=== PATIENT | male | born 1955 | race Caucasian/White ===

== ENCOUNTER 2017-03-21 18:44 | Emergency (ER) | payer BC ==
--- NOTE | 2017-03-21 19:36 | RADIOLOGY REPORT ---
HISTORY: Right ankle injury, pain COMPARISON: None. FINDINGS: Three views of the ankle obtained. Oblique mildly displaced distal fibular fracture. The distal tibia is intact. Ankle mortise intact. L ateral soft tissue swelling. No foreign body. IMPRESSION: Oblique mildly displaced distal fibular fracture. Final Electronic Signature: This report was electronically signed by Reji Lincoln MD on 03/21/2017 7:33 PM. do /
--- NOTE | 2017-03-21 20:21 | ER NURSING DOCUMENTATION ---
Nurse's Notes [facility] Name:Reji Iyer Age:61 yrs Sex:Male :1955 Arrival Date:03/21/2017 Time:18:44 Bed1 Private MD: Diagnosis:Distal Fibula Fracture Presentation: 03/21 19:01 Presenting complaint: Patient states: right ankle pain s/p twisting while hiking. lb positive swelling. Transition of care: patient was not received from another setting of care. Notified ED Physician of Dr. García notified. 19:01 Acuity: GEORGES 4 lb 19:01 Method Of Arrival: Walk In lb 19:05 Mechanism of Injury: Fall. lb Triage Assessment: 19:04 General: Appears in no apparent distress, Behavior is appropriate for age. Pain: lb Complains of pain in right ankle Pain does not radiate. Pain currently is 7 out of 10 on a pain scale. Musculoskeletal: No deficits noted. 19:05 Musculoskeletal: Swelling. lb Historical: - Allergies: Demerol; SULFA (SULFONAMIDES); Hydrocodone-Acetaminophen; Latex; - Home Meds: 1. atenolol 25 mg oral tab 1 tab 2 times per day 2. Plavix 75 mg oral tab 1 tab once daily - PMHx: CAD; - PSHx: SHOULDER SURGERY; PACEMAKER; stents; - Tetanus: > 10 years. - Ebola Screening: : Patient denies exposure to infectious person. Patient denies travel to an Ebola-affected area in the 21 days before illness onset. . - Immunization history: Flu Vaccine None. - Social history: Smoking status: Patient states was never smoker of tobacco. Patient uses alcohol only on a social basis. Screenin:06 Infectious Disease Risk None. Abuse screen: Denies threats or abuse. Denies injuries lb from another. Nutritional screening: No deficits noted. Assessment: 19:06 See Triage Assessment done by same RN. lb Vital Signs: 19:05 BP 194 / 92; Pulse 62; Resp 16; Temp 98(O); Pulse Ox 93% on R/A; Weight 81.65 kg; lb Height 5 ft. 7 in. (170.18 cm); Pain 7/10; 20:19 BP 183 / 70; Pulse 60; Resp 14; Pain 5/10; lb 19:05 Body Mass Index 28.19 (81.65 kg, 170.18 cm) lb ED Course: 18:45 Patient arrived in ED. ma1 18:45 Meño García MD is Attending Physician. mo 19:01 Kiara Arriaga is Primary Nurse. lb 19:02 Triage completed. lb 19:05 Affected limb iced. lb 19:06 Valuables Remains with patient. lb 19:20 Port Xray Completed. hz 19:27 ANKLE; [place] [address] In Process Unspecified. EDMS 19:27 [place] [id number] In Process Unspecified. EDMS 19:39 Port Xray Completed. dnn 19:39 ANKLE; [place] [id number] Sent. dnn 19:39 [place] [address] [id number] Sent. dnn 20:05 Emmanuel Lassiter DO, Reji Meléndez MD is Referral Physician. mo 20:18 Crutch training done. Walking boot applied. lb Administered Medications: No medications were administered Outcome: 20:06 Discharge ordered by MD. mo 20:19 Discharged to home ambulatory. lb 20:19 Condition: stable 20:19 Discharge Assessment: Patient awake, alert and oriented x 3. No cognitive and/or functional deficits noted. Patient verbalized understanding of disposition instructions. 20:19 Instructed on crutch walking, discharge instructions, follow up and referral plans. Ortho Care 20:20 Patient left the ED. Signatures: Dispatcher [employer] EDMS Meño García MD MD sc Norman, David dnn Bollock, Lynda Pearl Bhatt Renu Ashby ma1
--- NOTE | 2017-03-21 20:22 | ER PHYSICIAN DOCUMENTATION ---
Physician Documentation [facility] Name:Reji Iyer Age:61 yrs Sex:Male :1955 Arrival Date:03/21/2017 Time:18:44 Bed1 Private MD: Meño Clarke Disposition: 03/21/17 20:06 Discharged to Home/Self Care. Impression: Distal Fibula Fracture. - Condition is Good. - Discharge Instructions: ANKLE FRACTURE (Distal Fibula), closed. - Prescriptions for oxycodone- acetaminophen 5-325 mg Oral tablet - take 2 tablet by ORAL route every 4 hours; 20 tablet. Zofran 4 mg Oral Tablet - take 1 tablet by ORAL route every 12 hours .; 20 tablet. - Medical Reconciliation form form. - Follow up: Emmanuel Lassiter DO, Reji Meléndez MD; When: 1 week; Reason: Recheck today's complaints. - Problem is new. - Symptoms have improved. HPI: 03/21 20:03 This 61 yrs old Male presents to ER via Walk In with complaints of Ankle sc Injury - RIGHT. 20:03 The patient presents with decreased range of motion, an injury, pain. The complaints sc affect the right ankle. Onset: The symptom(s)/episode began/occurred just prior to arrival. Context: The problem was sustained outdoors, resulted from a mis-step by the patient, on a slippery surface, The mechanism of injury involved plantar flexion of the affected ankle. The patient can partially bear weight on the affected extremity. must have assistance. Associated signs and symptoms: The patient has no apparent associated signs or symptoms. Historical: - Allergies: Demerol; SULFA (SULFONAMIDES); Hydrocodone-Acetaminophen; Latex; - Home Meds: 1. atenolol 25 mg oral tab 1 tab 2 times per day 2. Plavix 75 mg oral tab 1 tab once daily - PMHx: CAD; - PSHx: SHOULDER SURGERY; PACEMAKER; stents; - Tetanus: > 10 years. - Ebola Screening: : Patient denies exposure to infectious person. Patient denies travel to an Ebola-affected area in the 21 days before illness onset. . - Immunization history: Flu Vaccine None. - Social history: Smoking status: Patient states was never smoker of tobacco. Patient uses alcohol only on a social basis. ROS: 20:04 Constitutional: Negative for fever, chills, and weight loss. sc Eyes: Negative for injury, pain, redness, and discharge. ENT: Negative for injury, pain, and discharge. Neck: Negative for injury, pain, and swelling. Cardiovascular: Negative for chest pain, palpitations, and edema. Back: Negative for injury and pain. Skin: Negative for injury, rash, and discoloration. 20:04 Neuro: Negative for headache, weakness, numbness, tingling, and seizure. sc 20:04 MS/extremity: Positive for injury or acute deformity, pain. Exam: Constitutional: This is a well developed, well nourished patient who is awake, alert, and in no acute distress. Head/Face: Normocephalic, atraumatic. 20:04 Neck: Trachea midline, no thyromegaly or masses palpated, and no cervical sc lymphadenopathy. Supple, full range of motion without nuchal rigidity, or vertebral point tenderness. No meningismus. 20:04 Musculoskeletal/extremity: Extremities: grossly normal except: ecchymosis, pain, swelling, tenderness, ROM: limited active range of motion due to pain, limited passive range of motion due to pain, Circulation is intact in all extremities. Sensation intact. Compartment Syndrome exam of affected extremity: is normal. DVT Exam: No signs of deep vein thrombosis. 20:04 Skin: Exam negative for acute changes. Vital Signs: 19:05 BP 194 / 92; Pulse 62; Resp 16; Temp 98(O); Pulse Ox 93% on R/A; Weight 81.65 kg; lb Height 5 ft. 7 in. (170.18 cm); Pain 7/10; 20:19 BP 183 / 70; Pulse 60; Resp 14; Pain 5/10; lb 19:05 Body Mass Index 28.19 (81.65 kg, 170.18 cm) lb MDM: 18:45 Patient medically screened. sc 20:05 Differential diagnosis: fracture, sprain. Data reviewed: vital signs, nurses notes, ia radiologic studies, and as a result, I will discharge patient. Counseling: I had a detailed discussion with the patient and/or guardian regarding: the historical points, exam findings, and any diagnostic results supporting the discharge/admit diagnosis, radiology results, the need for outpatient follow up, for a referral to a specialist. 03/21 19:27 Order name: ANKLE; 3[place] [id number]; Complete Time: 20:07 [facility] 03/21 20:07 Interpretation: Abnormal: distal fib fx. ia 03/21 19:27 Order name: [place] [id number] [facility] 03/21 19:37 Order name: ANKLE; [place] [id number] [facility] 03/21 20:07 Order name: Elevate and Ice Pack; Complete Time: 20:21 ia 03/21 20:07 Order name: ORTHO: Crutches & Training; Complete Time: 20:21 ia 03/21 20:07 Order name: Walking Boot; Complete Time: 20:21 ia Dispensed Medications: No medications were administered Signatures: Meño García MD MD sc Bollock, Lynda lb
== END 2017-03-21 20:21 | disposition home or self-care (01) ==
LOC: ER 18:44
DX: S82.891A Other fracture of right lower leg, initial encounter for closed fracture (principal); W18.40XA Slipping, tripping and stumbling without falling, unspecified, initial encounter; Y92.89 Other specified places as the place of occurrence of the external cause; Y93.01 Activity, walking, marching and hiking; I25.10 Atherosclerotic heart disease of native coronary artery without angina pectoris; Z79.02 Long term (current) use of antithrombotics/antiplatelets; Z79.899 Other long term (current) drug therapy; Z95.0 Presence of cardiac pacemaker; Z95.5 Presence of coronary angioplasty implant and graft
CPT/HCPCS: 99283